=== PATIENT | male | born 1980 | race Caucasian/White ===

== ENCOUNTER 2019-09-27 09:55 | Emergency (ER) | payer OTHER ==
[2019-09-27] MEDS ORDERED: HYDROCODONE/APAP 10/325 TAB ONE (10:41)
--- NOTE | 2019-09-27 10:51 | RAD REPORT ---
EXAM DESCRIPTION: RAD - Knee Left 3 View - 09/27/2019 10:45 am CLINICAL HISTORY: PAIN COMPARISON: No comparisons FINDINGS: There is a small suprapatellar joint effusion. No fracture or dislocation seen.
--- NOTE | 2019-09-27 10:54 | RAD REPORT ---
EXAM DESCRIPTION: RAD - Sacrum And Coccyx - 09/27/2019 10:45 am CLINICAL HISTORY: PAIN COMPARISON: No comparisons FINDINGS: Diffuse osteopenia is seen. No acute fracture seen. The
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
[2019-09-27 12:37] VITALS: BP 121/93; TEMP 99; O2SAT 96
== END 2019-09-27 12:23 | disposition home or self-care (01) ==
LOC: ER 09:55
DX: M25.562 Pain in left knee (principal); W17.89XA Other fall from one level to another, initial encounter; Y93.9 Activity, unspecified; Y92.9 Unspecified place or not applicable
CPT/HCPCS: 72220; 99284